=== PATIENT | male | born 1975 | race Caucasian/White ===

== ENCOUNTER 2023-07-12 16:09 | Emergency (ER) | payer BC, SELFPAY ==
[2023-07-12 16:19] VITALS: BP 134/97; PULSE 83; RESP 18; TEMP 36.8; O2SAT 97
--- NOTE | 2023-07-12 16:38 | ED.GENADULT ---
HPI - General Adult General Chief complaint: Shortness of Breath/Dyspnea Stated complaint: Shortness of Breath Source: patient and RN notes reviewed History of Present Illness HPI narrative: 47 yo M presents to urgent care with complaints of a cough since last Monday. Pt states he had just gotten down to [place] for work when he began coughing and having congestion. Pt states the cough is much worse at nighttime. Reports SOB when he is coughing. Denies any chest pain, fevers, chills, sore throat, ear pain, vomiting, or diarrhea. Related Data Home Medications Medication Instructions Recorded Confirmed atorvastatin 40 mg tablet 40 mg PO DAILY 07/12/23 07/12/23 levetiracetam 1,000 mg tablet 1,000 mg PO BID 07/12/23 07/12/23 Allergies Allergy/AdvReac Type Severity Reaction Status Date / Time No Known Allergies Allergy Verified 07/12/23 16:32 Review of Systems Review of Systems: CONSTITUTIONAL: Denies fever, chills, or sweats. EYES: Denies visual changes, redness, or discharge. ENT: Denies otalgia and sore throat CARDIOVASCULAR: Denies chest pain, palpitations, or edema. RESPIRATORY: Cough GASTROINTESTINAL: Denies abdominal pain, nausea, vomiting, or diarrhea. GENITOURINARY: Denies dysuria or hematuria. SKIN: Denies rash or itching. MUSCULOSKELETAL: Denies back pain, joint pain, or myalgia. NEUROLOGIC: Denies headache, numbness, or weakness. Pertinent positives per HPI. PMFSH Comments At the time of my signature, I reviewed and agree with the nursing past medical, surgical, social, and family history. There is no relevant family history pertinent to the patient complaint. Exam Narrative: GENERAL: This is a well-nourished, well-developed patient, in no apparent distress. HEAD: normocephalic, atraumatic. EYES: Sclera clear/white. Vision is grossly intact. EARS: External ears normal, auditory canals clear and without drainage. Hearing grossly intact. NOSE: External nose normal with no obvious nasal discharge, nares without redness, no rhinorrhea. THROAT: Mucous membranes moist, posterior pharynx clear. NECK: Neck supple, non-tender without lymphadenopathy, masses or thyromegaly. CARDIOVASCULAR: Regular rate and rhythm without murmurs, gallops, or rubs. RESPIRATORY: Clear to auscultation. Breath sounds equal bilaterally. No wheezes, rales, or rhonchi. GASTROINTESTINAL: Abdomen soft, non-tender, nondistended. Bowel sounds are active. No hepato-splenomegaly, or palpable masses. No guarding. SKIN: warm, intact with no suspicious lesions or rash, good texture and turgor. NEURO: awake, alert, and oriented to person, place and time. There were no obvious focal neurologic abnormalities. Course Course Level of Care: Express Care Visit Vital Signs Vital signs: Vital Signs Temperature 98.3 F 07/12/23 16:19 Pulse Rate 83 07/12/23 16:19 Respiratory Rate 18 07/12/23 16:19 Blood Pressure 134/97 H 07/12/23 16:19 Pulse Oximetry 97 07/12/23 16:19 Oxygen Delivery Room Air 07/12/23 16:19 Temperature 98.3 F 07/12/23 16:19 Pulse Rate 83 07/12/23 16:19 Respiratory Rate 18 07/12/23 16:19 Blood Pressure 134/97 H 07/12/23 16:19 Pulse Oximetry 97 07/12/23 16:19 Oxygen Delivery Room Air 07/12/23 16:19 Reviewed Medical Decision Making MDM Narrative Medical decision making narrative: Take steroids as directed. May use the inhaler every 4-6 hours as needed for coughing. Increase fluids at home. Avoid any and all smoke. May use a humidifier in the bedroom. Increase your Vitamin C. Follow-up with personal physician in 2-5 days. Differential Diagnosis Differential Diagnosis: bronchitis, viral illness, pna Vital Signs Vital Signs: Vital Signs Temperature 98.3 F 07/12/23 16:19 Pulse Rate 83 07/12/23 16:19 Respiratory Rate 18 07/12/23 16:19 Blood Pressure 134/97 H 07/12/23 16:19 Pulse Oximetry 97 07/12/23 16:19 Oxygen Delivery Room Air 07/12/23 16:19
== END 2023-07-12 16:40 | disposition home or self-care (01) ==
PROVIDERS: Emergency Provider Nurse Practitioner Family; PCP Family Medicine
DX: J40 Bronchitis, not specified as acute or chronic (principal); G40.909 Epilepsy, unspecified, not intractable, without status epilepticus; E78.00 Pure hypercholesterolemia, unspecified
CPT/HCPCS: 99213; G0463